=== PATIENT | female | born 1975 | race American Indian/Alaskan Native ===

== ENCOUNTER 2017-05-09 07:59 | Inpatient (IN) | payer MEDICAID ==
--- NOTE | 2017-05-03 12:33 | Anesthesia Consultation ---
Anesthesia Consult and Med Hx Date of service: 05/03/17 - Airway Anesthetic Teeth Evaluation: Good ROM Head & Neck: Adequate Mental/Hyoid Distance: Adequate Mallampati Class: Class II Intubation Access Assessment: Probably Good - Pulmonary Exam CTA: Yes - Cardiac Exam Cardiac Exam: RRR - Pre-Operative Health Status ASA Pre-Surgery Classification: ASA2 Proposed Anesthetic Plan: General - Cardiovascular System Hx Hypertension: Yes - Central Nervous System Hx Psychiatric Problems: No - Hematic Hx Anemia: Yes - Other Systems Hx Cancer: No
[2017-05-03 12:34] LABS: Basophils % (Auto) 0.4 % (0.0-1.8); Hematocrit 22.7 % (30.3-42.9); Hemoglobin 6.6 gm/dl (10.1-14.3); Mean Corpuscular HGB Conc 29 % (30-34); Platelet Count 644 K/mm3 (140-440); Red Blood Count 3.94 M/mm3 (3.65-5.03)
[2017-05-03 12:38] LABS: Mean Corpuscular Hemoglobin 17 pg (28-32); Mean Corpuscular Volume 58 fl (79-97); Red Cell Distribution Width 20.8 % (13.2-15.2)
[~2017-05-09 07:59] MED LIST: LACTATED RINGERS 1,000 ML IV SCH; NACL 0.9% 500 ML 500 ML IV NR; PEPCID PO NR; VERSED IV NR
[2017-05-09] MEDS ORDERED: NACL BACTERIOSTATIC INFILTRATI ONE (08:25)
--- NOTE | 2017-05-09 08:34 | Short Stay Summary ---
Short Stay Documentation Date of service: 05/09/17 Narrative H&P: Pt is a 41yo BF LMP 04/28/17 presents for surgical evaluation and treatment for uterine fibroids. She has been hospitalized several times for blood transfusions due to prolonged heavy vaginal bleeding caused by her fibroids. Pelvic u/s shows an enlarged uterus 10.8.x 6.6 x 6.2cm with a 6 x 6cm anterior fibroid. She now presents for an Abdominal Myomectomy. - History Principal diagnosis: Uterine fibroids H&P: obtained from office Past Medical History: hypertension (no meds) Past Surgical History: No surgical history Social history: no significant social history, single - Allergies and Medications Current Medications: Allergies No Known Allergies Allergy (Unverified 05/02/17 07:44) Home Medications Medication Instructions Recorded Confirmed Last Taken Type No Known Home Medications [No 04/10/17 05/02/17 Unknown History Reported Home Medications] Active Medications Lactated Ringer's (Lactated Ringers) 1,000 mls @ 100 mls/hr IV DIRECT CHEYANNE Sodium Chloride (Nacl 0.9% 500 Ml) 500 mls @ 0 mls/hr IV ONCE NR PRN Reason: As Directed Stop: 05/09/17 23:59 Cefazolin Sodium (Ancef/Sterile Water 2 Gm/20 Ml) 2 gm in 20 mls @ 80 mls/hr IV PREOP NR PRN Reason: Protocol - Physical exam General appearance: no acute distress Integumentary: no rash HEENT: Atraumatic Lungs: Clear to auscultation Breasts: deferred Heart: Regular rate Gastrointestinal: normal Female Genitourinary: masses Rectal Exam: deferred Extremities: no ischemia Neurological: Normal gait, Normal speech - Brief post op/procedure progress note Date of procedure: 05/09/17 Pre-op diagnosis: 1. Symptomatic fibroid uterus 2. Menometrorrhagia Post-op diagnosis: same Procedure: Abdominal myomectomy Anesthesia: GETA Findings: A 12 weeks size myomatous uterus with a solitary 7 x 7cm central fibroid. Normal tubes and ovaries bilaterally. Surgeon: OSMAN CANNON Estimated blood loss: 50-100ml Pathology: list (fibroid) Specimen disposition: to lab Condition: stable - Hospital course Hospital course: Unremarkable. - Disposition Condition at discharge: Good Disposition: DC-01 TO HOME OR SELFCARE - Discharge Diagnoses (1) Uterine fibroid Status: Resolved Qualifiers: Uterine leiomyoma location: intramural and submucous Qualified Code(s): D25.1 - Intramural leiomyoma of uterus; D25.0 - Submucous leiomyoma of uterus (2) Menometrorrhagia Status: Resolved (3) Anemia due to chronic blood loss Status: Resolved Short Stay Discharge Plan Activity: no restrictions Diet: regular Wound: open to air, keep clean and dry Follow up with: PRIMARY CAREMD [Primary Care Provider] - 7 Days OSMAN CANNON MD [Staff Physician] - 14 Days Prescriptions: Ferrous Sulfate [Feosol 325 MG tab] 325 mg PO BID #60 tablet HYDROcodone/APAP 5-325 [[place] 5/325] 1 each PO Q6HR PRN #30 tablet PRN Reason: Pain Ibuprofen [Motrin] 800 mg PO Q8HR PRN #30 tablet PRN Reason: Moder Pain Unrelieved By [place]
[2017-05-09] MEDS ORDERED: VERSED IV SCH (09:00)
[2017-05-09] MEDS ORDERED: PEPCID PO NR (09:00)
--- NOTE | 2017-05-09 09:18 | Anesthesia Day of Surgery ---
Anesthesia Day of Surgery - Day of Surgery Patient Examined: Yes Patient H&P Reviewed: Yes Patient is NPO: Yes
[2017-05-09] MEDS ORDERED: XYLOCAINE 1% 20 mL ONE (09:27)
[2017-05-09] MEDS ORDERED: MARCAINE-EPI/PF 0.5%-1:200,000 INFILTRATI ONE (09:27)
[2017-05-09] MEDS ORDERED: DECADRON ONE ×2 (09:28→10:12)
[2017-05-09] MEDS ORDERED: SUBLIMAZE IV NR (09:30)
[2017-05-09] MEDS ORDERED: ZOFRAN IV PRN (09:30)
[2017-05-09] MEDS ORDERED: NEURONTIN PO NR (09:30)
[2017-05-09] MEDS ORDERED: ANCEF/STERILE WATER 2 GM/20 ML 2 GM/20 ML SYRINGE IV NR (09:30)
[2017-05-09] MEDS ORDERED: NACL 0.9% 100 ML ONE (09:39)
[2017-05-09] MEDS ORDERED: Vasostrict ONE (09:39)
[2017-05-09] MEDS ORDERED: ZOFRAN ONE (10:12)
[2017-05-09] MEDS ORDERED: SUBLIMAZE ONE (10:12)
[2017-05-09] MEDS ORDERED: ZEMURON IV ONE (10:12)
[2017-05-09] MEDS ORDERED: XYLOCAINE MPF 2% ONE (10:12)
[2017-05-09] MEDS ORDERED: DIPRIVAN 10 MG/ML IV ONE (10:12)
[2017-05-09] MEDS ORDERED: DILAUDID ONE (10:12)
[2017-05-09] MEDS ORDERED: ACD-A 500 ML IV ONE (10:29)
[2017-05-09] MEDS ORDERED: CALCIUM CHLORIDE IV ONE (12:32)
[2017-05-09] MEDS ORDERED: NEOSPORIN GU IR ONE (12:32)
[2017-05-09] MEDS ORDERED: THROMBIN (BOVINE) TP ONE (12:32)
[2017-05-09] MEDS: DILAUDID IV PRN ×3 (12:36→13:14)
--- NOTE | 2017-05-09 12:36 | Operative Report ---
Operative Report Operative Report: Date of procedure: 05/09/2017 Pre-operative diagnosis: 1. Symptomatic fibroid uterus 2. Menometrorrhagia 3. Acute blood loss anemia Post-operative diagnosis: Same Procedure name(s): Abdominal myomectomy Surgeon: Alfonso Castellanos MD Rn Acls: None Anesthesia: Gen. endotracheal intubation by Dr. Wright EBL: 50 mL's Findings: A 12 week size myomatous uterus with a large 7 x 7 cm central fibroid. Normal tubes and ovaries bilaterally. Procedure: After the patient was correctly identified, she was prepped and draped in the usual sterile fashion and placed in the dorsolithotomy position. First the skin knife was used to make a transverse skin incision, and the incision was extended down to the level of fascia which was nicked in the midline and extended laterally using the Bovie cautery. The rectus muscles were dissected off the rectus fascia both superiorly and inferiorly. The rectus bellies in the midline and the peritoneum was entered under direct visualization. Exploration of the pelvic organs found the uterus to be enlarged, with a solitary central mass. Both tubes and ovaries were found to be normal. Next the Pitressin solution was used to infiltrate the serosal layer of the uterus anteriorly, and a solitary large fibroid was removed using both sharp and blunt dissection. The uterine cavity was entered, thus should the patient become she would need to have a for delivery. The specimen was sent to pathology. Examination of the uterus found no other fibroids or masses. The uterine defect was then closed using 2-0 Monocryl suture in a running interlocking fashion, the second layer imbricating the first. After good hemostasis was achieved, the Tisseel sealant was sprayed across the serosal layer, and excellent hemostasis was assured. The uterus was then returned to his normal anatomical position, and the peritoneum was re- approximated using 3-0 Vicryl suture in a running interlocking fashion, and the rectus muscles were loosely re-approximated using 0 Vicryl suture in a figure-of -eight configuration. The fascia was re-approximated using 0 Vicryl suture in a running interlocking fashion. The subcutaneous layer was made hemostatic using Bovie cautery, and the skin edges re-approximated using 3-0 Monocryl suture in a sub-cuticular fashion. The patient tolerated the procedure well and was transported to recovery in stable condition.
[2017-05-09] MEDS ORDERED: TYLENOL PO PRN (12:38)
[2017-05-09] MEDS ORDERED: MILK OF MAGNESIA PO PRN (12:38)
[2017-05-09] MEDS ORDERED: Vasostrict IV ONE (12:41)
[2017-05-09] MEDS ORDERED: ACD-A IV ONE (12:41)
[2017-05-09] MEDS ORDERED: NACL 0.9% IV ONE (12:42)
[2017-05-09] MEDS ORDERED: NACL 0.9% IR ONE (12:44)
--- NOTE | 2017-05-09 13:32 | Post Anesthesia Evaluation ---
- Post Anesthesia Evaluation Patient Participated: Yes Airway Patent: Yes Stable Respiratory Function: Yes Temp > 96.8F: Yes Pain Manageable: Yes Adequeate Hydration: Yes Anesthesia Complications: No
[2017-05-09] MEDS: ANCEF/NS 1 GM/50 ML 1 GM/50 ML BAG IV SCH (17:58)
[2017-05-09] MEDS: D5LR 1,000 ML IV SCH (17:58)
[2017-05-09] MEDS: TORADOL IV SCH ×2 (17:59→23:54)
[2017-05-09] MEDS: PERCOCET 5/325 PO PRN (20:03)
[2017-05-10] MEDS: ANCEF/NS 1 GM/50 ML 1 GM/50 ML BAG IV SCH (01:23)
[2017-05-10] MEDS: D5LR 1,000 ML IV SCH (01:25)
[2017-05-10 05:12] LABS: Hematocrit 30.2 % (30.3-42.9); Hemoglobin 9.2 gm/dl (10.1-14.3)
[2017-05-10] MEDS: TORADOL IV SCH ×3 (05:26→17:55)
[2017-05-10] MEDS: NORCO 5/325 PO PRN ×2 (06:16→19:04)
--- NOTE | 2017-05-10 08:39 | Progress Note ---
Assessment and Plan - Patient Problems (1) Uterine fibroid Current Visit: Yes Status: Resolved Qualifiers: Uterine leiomyoma location: intramural and submucous Qualified Code(s): D25.1 - Intramural leiomyoma of uterus; D25.0 - Submucous leiomyoma of uterus (2) Menometrorrhagia Onset Date: 05/09/17 Current Visit: Yes Status: Resolved (3) Anemia due to chronic blood loss Onset Date: 05/09/17 Current Visit: Yes Status: Chronic (4) Status post myomectomy Onset Date: 05/10/17 Current Visit: Yes Status: Resolved Plan to address problem: A: S/P Abdominal myomectomy - POD #1 Doing well Asymptomatic anemia - stable P: Advance diet as tolerated Encourage ambulation Anticipate discharge tomorrow. Subjective - Subjective Date of service: 05/10/17 Principal diagnosis: s/p Abdominal myomectomy - POD #1 Interval history: Pt is feeling well, complaining of incisional pains. Tolerating a liquid diet without nausea or vomiting. + Flatus Patient reports: appetite normal, voiding normally, flatus, pain poorly controlled, ambulating normally Objective - Vital Signs Latest vital signs: Vital Signs Temp Pulse Resp BP BP Pulse Ox 05/10/17 04:20 98.0 F 94 H 142/83 05/10/17 00:34 97.8 F 96 H 18 117/84 05/09/17 21:38 99 05/09/17 20:04 97.7 F 89 18 136/87 05/09/17 17:30 97.5 F L 96 H 18 120/85 05/09/17 14:15 98.4 F 92 H 122/78 98 05/09/17 13:45 97.9 F 92 H 12 116/73 98 05/09/17 13:30 10 L 05/09/17 13:15 91 H 10 L 116/78 99 05/09/17 13:14 14 05/09/17 13:00 90 10 L 119/76 99 05/09/17 12:49 15 05/09/17 12:47 14 05/09/17 12:36 14 05/09/17 12:35 95 H 17 103/78 100 05/09/17 12:30 97 H 16 121/78 100 05/09/17 12:25 95 H 16 122/72 100 05/09/17 12:20 97.8 F 96 H 14 118/74 100 05/09/17 10:38 98.6 F 111 H 15 146/78 100 05/09/17 10:33 109 H 15 155/82 100 05/09/17 10:28 108 H 15 146/79 100 05/09/17 10:23 106 H 12 153/94 100 05/09/17 10:18 102 H 17 145/86 100 05/09/17 10:13 98 H 13 143/91 98 05/09/17 10:08 98.0 F 100 H 13 147/93 100 05/09/17 10:03 102 H 16 143/91 100 05/09/17 09:53 98.2 F 100 H 16 151/94 99 Intake and Output 05/09/17 05/10/17 05/10/17 22:59 06:59 14:59 Intake Total 560 1360 Output Total 620 1800 Balance -60 -440 Intake: IV 500 1000 ANCEF/NS 1 GM/50 ML 1 gm 100 In 50 ml @ 100 mls/hr IV Q8H CHEYANNE Rx#:[id number] D5lr 1,000 ml @ 125 mls/ 1000 hr IV DIRECT CHEYANNE Rx#: [id number] Lactated Ringers 1,000 ml 400 @ 100 mls/hr IV DIRECT CHEYANNE Rx#:[id number] Oral 60 360 Output: Urine 620 1800 Indwelling Catheter 620 1800 Other: Total, Intake Amount 60 240 Total, Output Amount 600 600 Voiding Method Indwelling Catheter Indwelling Catheter - Exam Breasts: Present: deferred Cardiovascular: Present: Regular rate Lungs: Present: Clear to auscultation Abdomen: Present: normal appearance, soft Extremities: Present: normal Incision: Present: normal, dry, intact, dressed - Labs Labs: Abnormal lab results 05/09/17 05/10/17 Range/Units 08:20 04:43 Hgb 9.2 L (10.1-14.3) gm/dl Hct 30.2 L (30.3-42.9) % Crossmatch See Detail Laboratory Tests 05/03/17 05/09/17 05/10/17 12:01 08:20 04:43 WBC 7.0 RBC 3.94 Hgb 6.6 L 9.2 L Hct 22.7 L 30.2 L MCV 58 L MCH 17 L MCHC 29 L RDW 20.8 H Plt Count 644 H Lymph % (Auto) 24.8 [place] % (Auto) 10.8 H Eos % (Auto) 3.0 Baso % (Auto) 0.4 Lymph # 1.7 [place] # 0.8 Eos # 0.2 Baso # 0.0 Seg Neutrophils % 61.0 Seg Neutrophils # 4.3 Blood Type O POSITIVE Antibody Screen Negative Crossmatch See Detail
--- NOTE | 2017-05-10 09:58 | Progress Note ---
Subjective Date of service: 05/10/17 Principal diagnosis: Uterine fibroids Interval history: 1st POD after abdominal myomectomy Patient is in the bed, comfortable. pain is mostly controlled with pain meds. Ambulated well. No nausea or vomiting. No anesthesia complications Objective - Constitutional Vitals: Vital Signs - 12hr 05/10/17 05/10/17 00:34 04:20 Temperature 97.8 F 98.0 F Pulse Rate 96 H 94 H Respiratory 18 Rate Blood Pressure 117/84 142/83 [Left] - Labs CBC & Chem 7: 05/10/17 04:43 Labs: Abnormal lab results 05/09/17 05/10/17 Range/Units 08:20 04:43 Hgb 9.2 L (10.1-14.3) gm/dl Hct 30.2 L (30.3-42.9) % Crossmatch See Detail
[2017-05-11] MEDS: TORADOL IV SCH ×2 (00:30→06:19)
[2017-05-11] MEDS: PERCOCET 5/325 PO PRN ×2 (01:33→09:56)
[2017-05-11 09:02] VITALS: BP 133/93
--- NOTE | 2017-05-11 11:05 | Discharge Summary ---
Providers - Providers Date of Admission: 05/09/17 07:59 Date of discharge: 05/11/17 Attending physician: OSMAN CANNON Primary care physician: [facility] [employer]IST[facility] Hospitalization Reason for admission: other (myomectomy) Procedure: other (abdomen myomectomy) Incision: dry, intact Other procedures: none complications: none Discharge diagnosis: other (status post abdominal myomectomy) Hospital course: Uncomplicated postoperative course Condition at discharge: Good Disposition: DC-01 TO HOME OR SELFCARE - Discharge Diagnoses (1) Status post myomectomy Status: Resolved Plan - Discharge Medications Prescriptions: Ferrous Sulfate [Feosol 325 MG tab] 325 mg PO BID #60 tablet HYDROcodone/APAP 5-325 [[place] 5/325] 1 each PO Q6HR PRN #30 tablet PRN Reason: Pain Ibuprofen [Motrin] 800 mg PO Q8HR PRN #30 tablet PRN Reason: Moder Pain Unrelieved By [place] - Provider Discharge Summary Activity: no sex for 6 weeks, no heavy lifting 4 weeks, no strenuous exercise Diet: routine Additional instructions: [] Smoking cessation referral if applicable(refer to patient education folder for contact #) [] Refer to [facility] Booklet Call your doctor immediately for: * Fever > 100.5 * Heavy vaginal bleeding ( >1 pad per hour) * Severe persistent headache * Shortness of breath * Reddened, hot, painful area to leg or breast * Drainage or odor from incision. * Keep incision clean and dry at all times and follow doctor's instructions regarding bathing/showering - Follow up plan Follow up: MIHAI PAEZ MD [Primary Care Provider] - 7 Days OSMAN CANNON MD [Staff Physician] - 14 Days Forms: [facility] Discharge Summary, Discharge Signature Page
== END 2017-05-11 10:53 | disposition home or self-care (01) | DRG 742 ==
LOC: 3A 07:59 → OB 13:21
PROVIDERS: ADMIT Obstetrics & Gynecology; ATTEND Obstetrics & Gynecology
PROC: 0UB90ZZ Excision of Uterus, Open Approach (ICD-10-PCS; principal; 2017-05-09)
PROC: 30233N1 Transfusion of Nonautologous Red Blood Cells into Peripheral Vein, Percutaneous Approach (ICD-10-PCS; 2017-05-09)
DX: D25.0 Submucous leiomyoma of uterus (principal); D62 Acute posthemorrhagic anemia; I10 Essential (primary) hypertension; N80.0 Endometriosis of uterus; D25.1 Intramural leiomyoma of uterus
CPT/HCPCS: 36415; 64450; 81025; 85014; 85018; 85025; 86850; 86900; 86901; 86920; 88305; C9250; J0690; J1100; J1170; J1885; J2250; J2405; J2704; J3010; J7120; J7121; P9016

== ENCOUNTER 2017-11-03 18:30 | Emergency (ER) | payer MEDICAID ==
[2017-11-03 19:07] LABS: Basophils % (Auto) 0.5 % (0.0-1.8); Eosinophils # (Auto) 0.1 K/mm3 (0.0-0.4); Eosinophils % (Auto) 1.7 % (0.0-4.3); Lymphocytes # (Auto) 1.7 K/mm3 (1.2-5.4); Lymphocytes % (Auto) 19.7 % (13.4-35.0); Mean Corpuscular HGB Conc 30 % (30-34); Monocytes # (Auto) 0.8 K/mm3 (0.0-0.8); Platelet Count 670 K/mm3 (140-440); Red Blood Count 4.29 M/mm3 (3.65-5.03); Red Cell Distribution Width 19.8 % (13.2-15.2)
[2017-11-03 19:30] LABS: Alanine Aminotransferase 12 units/L (7-56); Albumin 3.9 g/dL (3.9-5); BUN/Creatinine Ratio 12; Blood Urea Nitrogen 7 mg/dL (7-17); Calcium 8.4 mg/dL (8.4-10.2); Hemolysis Index 5
[2017-11-03 19:42] LABS: Mean Corpuscular Hemoglobin 19 pg (28-32); Mean Corpuscular Volume 63 fl (79-97)
[2017-11-03] MEDS ORDERED: MORPHINE IV ONE ×2 (20:19→21:10)
[2017-11-03] MEDS ORDERED: ZOFRAN IV ONE (20:19)
[2017-11-03 20:38] LABS: Bilirubin,Urine NEG (Negative); Blood,Urine LG (Negative); Urobilinogen,Urine < 2.0 mg/dL (<2.0)
[2017-11-03 20:40] LABS: Color,Urine Yellow (Yellow); RBC,Urine > 182.0 /HPF (0.0-6.0); WBC,Urine < 1.0 /HPF (0.0-6.0)
[2017-11-03 21:06] LABS: HCG Qualitative,Urine Negative (Negative)
[2017-11-03] MEDS ORDERED: TORADOL IV ONE (21:10)
--- NOTE | 2017-11-03 21:26 | Emergency Department Report ---
ED Abdominal Pain HPI - General Chief Complaint: Abdominal Pain Stated Complaint: ABDOMINAL PAIN Time Seen by Provider: 11/03/17 20:13 Source: patient Mode of arrival: Ambulatory Limitations: No Limitations - History of Present Illness Initial Comments: Patient is a 42-year-old asthmatic female past medical history of anemia who last week had iron infusion who is coming in stating that she has lower abdominal pain for the past 2 days. Patient states the pain is colicky at worse 8 out of 10 in severity. Patient states it's all below the umbilicus. Patient denies any fevers chills nausea vomiting diarrhea vaginal discharge vaginal irritation dysuria or urinary frequency. Patient does state that she is on her menses she's been arm indices approximate 4 days with moment does not have any pain with her menses. Radiation: none Severity scale (0 -10): 8 Quality: cramping Consistency: colicky - Related Data Previous Rx's Medication Instructions Recorded Last Taken Type Ferrous Sulfate [Feosol 325 MG tab] 325 mg PO BID #60 tablet 05/09/17 Unknown Rx HYDROcodone/APAP 5-325 [[place] 1 each PO Q6HR PRN #30 tablet 05/09/17 Unknown Rx 5/325] Ibuprofen [Motrin] 800 mg PO Q8HR PRN #30 tablet 05/09/17 Unknown Rx Ibuprofen [Motrin] 800 mg PO Q8HR PRN #20 tablet 11/03/17 Unknown Rx oxyCODONE /ACETAMINOPHEN [Percocet 1 tab PO Q6HR PRN #12 tablet 11/03/17 Unknown Rx 5/325] Allergies Allergy/AdvReac Type Severity Reaction Status Date / Time No Known Allergies Allergy Unverified 05/02/17 07:44 ED Review of Systems ROS: Stated complaint: ABDOMINAL PAIN Other details as noted in HPI Comment: All other systems reviewed and negative ED Past Medical Hx - Past Medical History Hx Hypertension: Yes Hx Congestive Heart Failure: No Hx Diabetes: No Hx Asthma: No Hx COPD: No Hx HIV: No Additional medical history: fibroid removal, anemia - Social History Smoking Status: Never Smoker - Medications Home Medications: Home Medications Medication Instructions Recorded Confirmed Last Taken Type Ferrous Sulfate [Feosol 325 MG tab] 325 mg PO BID #60 tablet 05/09/17 Unknown Rx HYDROcodone/APAP 5-325 [[place] 1 each PO Q6HR PRN #30 tablet 05/09/17 Unknown Rx 5/325] Ibuprofen [Motrin] 800 mg PO Q8HR PRN #30 tablet 05/09/17 Unknown Rx Ibuprofen [Motrin] 800 mg PO Q8HR PRN #20 tablet 11/03/17 Unknown Rx oxyCODONE /ACETAMINOPHEN [Percocet 1 tab PO Q6HR PRN #12 tablet 11/03/17 Unknown Rx 5/325] ED Physical Exam - General Limitations: No Limitations General appearance: alert, in no apparent distress - Head Head exam: Present: atraumatic, normocephalic - Eye Eye exam: Present: normal appearance - ENT ENT exam: Present: mucous membranes moist - Neck Neck exam: Present: normal inspection - Respiratory Respiratory exam: Present: normal lung sounds bilaterally. Absent: respiratory distress, wheezes, rales, rhonchi - Cardiovascular Cardiovascular Exam: Present: regular rate, normal rhythm. Absent: systolic murmur, diastolic murmur, rubs, gallop - GI/Abdominal GI/Abdominal exam: Present: soft, tenderness (there is suprapubic tenderness.), normal bowel sounds. Absent: distended, guarding, rebound - Extremities Exam Extremities exam: Present: normal inspection - Back Exam Back exam: Present: normal inspection - Neurological Exam Neurological exam: Present: alert, oriented X3 - Psychiatric Psychiatric exam: Present: normal affect, normal mood - Skin Skin exam: Present: warm, dry, intact, normal color. Absent: rash ED Course Vital Signs 11/03/17 11/03/17 11/03/17 18:45 20:38 20:40 Temperature 98.5 F Pulse Rate 106 H Respiratory 18 18 18 Rate Blood Pressure 136/82 O2 Sat by Pulse 100 100 Oximetry ED Medical Decision Making - Lab Data Result diagrams: 11/03/17 18:56 11/03/17 18:56 Lab Results 11/03/17 11/03/17 11/03/17 Range/Units 18:56 18:56 20:18 WBC 8.5 (4.5-11.0) K/mm3 RBC 4.29 (3.65-5.03) M/mm3 Hgb 8.0 L (10.1-14.3) gm/dl Hct 27.0 L (30.3-42.9) % MCV 63 L (79-97) fl MCH 19 L (28-32) pg MCHC 30 (30-34) % RDW 19.8 H (13.2-15.2) % Plt Count 670 H (140-440) K/mm3 Lymph % (Auto) 19.7 (13.4-35.0) % [place] % (Auto) 9.0 H (0.0-7.3) % Eos % (Auto) 1.7 (0.0-4.3) % Baso % (Auto) 0.5 (0.0-1.8) % Lymph # 1.7 (1.2-5.4) K/mm3 [place] # 0.8 (0.0-0.8) K/mm3 Eos # 0.1 (0.0-0.4) K/mm3 Baso # 0.0 (0.0-0.1) K/mm3 Seg Neutrophils % 69.1 (40.0-70.0) % Seg Neutrophils # 5.8 (1.8-7.7) K/mm3 Sodium 137 (137-145) mmol/L Potassium 3.9 (3.6-5.0) mmol/L Chloride 100.2 (98-107) mmol/L Carbon Dioxide 24 (22-30) mmol/L Anion Gap 17 mmol/L BUN 7 (7-17) mg/dL Creatinine 0.6 L (0.7-1.2) mg/dL Estimated GFR > 60 ml/min BUN/Creatinine Ratio 12 % Glucose 85 (65-100) mg/dL Calcium 8.4 (8.4-10.2) mg/dL Total Bilirubin 0.20 (0.1-1.2) mg/dL AST 22 (5-40) units/L ALT 12 (7-56) units/L Alkaline Phosphatase 67 (35-129) units/L Total Protein 7.3 (6.3-8.2) g/dL Albumin 3.9 (3.9-5) g/dL Albumin/Globulin Ratio 1.1 % Urine Color Yellow (Yellow) Urine Turbidity Slightly-cloudy (Clear) Urine pH 6.0 (5.0-7.0) Ur Specific [place] 1.012 (1.003-1.030) Urine Protein 30 mg/dl (Negative) mg/dL Urine Glucose (UA) Neg (Negative) mg/dL Urine Ketones Neg (Negative) mg/dL Urine Blood Lg (Negative) Urine Nitrite Neg (Negative) Urine Bilirubin Neg (Negative) Urine Urobilinogen < 2.0 (<2.0) mg/dL Ur Leukocyte Esterase Neg (Negative) Urine WBC (Auto) < 1.0 (0.0-6.0) /HPF Urine RBC (Auto) > 182.0 (0.0-6.0) /HPF U Epithel Cells (Auto) 10.0 (0-13.0) /HPF Urine HCG, Qual (Negative) 11/03/17 Range/Units 20:18 WBC (4.5-11.0) K/mm3 RBC (3.65-5.03) M/mm3 Hgb (10.1-14.3) gm/dl Hct (30.3-42.9) % MCV (79-97) fl MCH (28-32) pg MCHC (30-34) % RDW (13.2-15.2) % Plt Count (140-440) K/mm3 Lymph % (Auto) (13.4-35.0) % [place] % (Auto) (0.0-7.3) % Eos % (Auto) (0.0-4.3) % Baso % (Auto) (0.0-1.8) % Lymph # (1.2-5.4) K/mm3 [place] # (0.0-0.8) K/mm3 Eos # (0.0-0.4) K/mm3 Baso # (0.0-0.1) K/mm3 Seg Neutrophils % (40.0-70.0) % Seg Neutrophils # (1.8-7.7) K/mm3 Sodium (137-145) mmol/L Potassium (3.6-5.0) mmol/L Chloride (98-107) mmol/L Carbon Dioxide (22-30) mmol/L Anion Gap mmol/L BUN (7-17) mg/dL Creatinine (0.7-1.2) mg/dL Estimated GFR ml/min BUN/Creatinine Ratio % Glucose (65-100) mg/dL Calcium (8.4-10.2) mg/dL Total Bilirubin (0.1-1.2) mg/dL AST (5-40) units/L ALT (7-56) units/L Alkaline Phosphatase (35-129) units/L Total Protein (6.3-8.2) g/dL Albumin (3.9-5) g/dL Albumin/Globulin Ratio % Urine Color (Yellow) Urine Turbidity (Clear) Urine pH (5.0-7.0) Ur Specific [place] (1.003-1.030) Urine Protein (Negative) mg/dL Urine Glucose (UA) (Negative) mg/dL Urine Ketones (Negative) mg/dL Urine Blood (Negative) Urine Nitrite (Negative) Urine Bilirubin (Negative) Urine Urobilinogen (<2.0) mg/dL Ur Leukocyte Esterase (Negative) Urine WBC (Auto) (0.0-6.0) /HPF Urine RBC (Auto) (0.0-6.0) /HPF U Epithel Cells (Auto) (0-13.0) /HPF Urine HCG, Qual Negative (Negative) - Radiology Data Radiology results: report reviewed CT of abdomen and pelvis showed no acute abnormality. Patient had a normal appendix grossly normal reproductive system intestines and colon they were. Within normal limits as well. Patient's bladder was enlarged however the patient is empty her bladder after the CT scan and is normal size on bedside US - Medical Decision Making Patient is a 42-year-old female who is on her menses having some increased suprapubic p pain. Patient states she normally does not have pain with her menses however because of her recent surgery and myomectomy she may now be developing some dysmenorrhea. Patient's pain was controlled here in emergency department she'll be discharged home with follow-up with her [facility] Dr. Castellanos. Critical care attestation.: If time is entered above; I have spent that time in minutes in the direct care of this critically ill patient, excluding procedure time. ED Disposition Clinical Impression: Dysmenorrhea Disposition: DC-01 TO HOME OR SELFCARE Is pt being admited?: No Does the pt Need Aspirin: No Condition: Stable Instructions: Dysmenorrhea (ED) Prescriptions: Ibuprofen [Motrin] 800 mg PO Q8HR PRN #20 tablet PRN Reason: Pain oxyCODONE /ACETAMINOPHEN [Percocet 5/325] 1 tab PO Q6HR PRN #12 tablet PRN Reason: Pain Referrals: OSMAN CASTELLANOS MD [Staff Physician] - 3-5 Days
--- NOTE | 2017-11-03 22:33 | Cat Scan Report ---
FINAL REPORT EXAM: CT ABDOMEN PELVIS W CON HISTORY: abd pain COMPARISON: None available. TECHNIQUE: Contiguous axial images were obtained. Additional sagittal and coronal reformatted images were obtained. Administration of IV contrast given per institution protocol. Images submitted for interpretation. 100 cc Omnipaque [id number]. FINDINGS: Lung bases are clear. 7 millimeters cyst at the anterior superior margin of the left hepatic lobe. There are few additional punctate low-attenuation hepatic lesions. These are too small to accurately characterize by CT, but may reflects cysts. No suspicious enhancing hepatic mass. Mild diffuse fatty infiltration of the liver. No calcified gallstones or biliary dilatation. Small benign splenic cysts. Inferior splenic cyst has a small calcification at its margin. Pancreas and adrenal glands are unremarkable. No solid renal lesion or hydronephrosis. Aorta and IVC are normal in caliber. Urinary bladder, uterus, ovaries are grossly unremarkable. There are few pelvic phleboliths. No free fluid or lymphadenopathy. The appendix is gas-filled and normal in caliber measuring up to 6 millimeters in diameter. Small to moderate amount of stool in the colon. No focal inflammatory changes the bowel. Lumbar vertebral body heights are preserved. Bony pelvis is grossly intact. IMPRESSION: No focal inflammatory changes of the abdomen and pelvis.
[2017-11-03 23:01] VITALS: BP 150/87
== END 2017-11-03 23:20 | disposition home or self-care (01) ==
LOC: ED 18:30
DX: N94.6 Dysmenorrhea, unspecified (principal); I10 Essential (primary) hypertension
CPT/HCPCS: 36415; 74177; 80053; 81001; 81025; 85025; 96374; 96375; 96376; 99284; J1885; J2270; J2405; Q9967